=== PATIENT | male | born 2000 | race African-American/Black ===

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

== ENCOUNTER 2019-03-13 21:11 | Emergency (ER) | payer BC, OTHER ==
[2019-03-13 21:32] VITALS: RESP 18; TEMP 98.6
--- NOTE | 2019-03-13 22:03 | XR ---
EXAMINATION TYPE: XR foot complete RT DATE OF EXAM: 03/13/2019 COMPARISON: NONE HISTORY: Pain TECHNIQUE: 3 views FINDINGS: There is nondisplaced fracture of the mid shaft of the proximal phalanx little toe right fo ot. There is no dislocation. Metatarsals are intact. IMPRESSION: Nondisplaced little toe fracture.
--- NOTE | 2019-03-13 22:23 | ED ---
Lower Extremity Injury HPI - General Chief Complaint: Extremity Injury, Lower Stated Complaint: Toe Injury Time Seen by Provider: 03/13/19 21:38 Source: patient Mode of arrival: wheelchair Limitations: no limitations - History of Present Illness Initial Comments: 18-year-old male patient presents to the emergency department today for evaluation of right foot injury. Patient states his playing basketball and another player stepped on his foot. Patient states he is having pain over the fifth metatarsal region. States he is having a numb sensation to the right fifth toe. He feels he may have broken his foot. He denies falling, hitting his head, losing consciousness. Denies any other injuries. Patient denies any headache, neck pain, back pain, chest pain, shortness of breath, dizziness, weakness, abdominal pain, nausea, vomiting, or difficulties with bowel movements or urination. - Related Data Home Medications Medication Instructions Recorded Confirmed No Known Home Medications 03/13/19 03/13/19 Allergies Allergy/AdvReac Type Severity Reaction Status Date / Time peanut Allergy Itching Verified 07/13/18 08:34 Review of Systems ROS Statement: Those systems with pertinent positive or pertinent negative responses have been documented in the HPI. ROS Other: All systems not noted in ROS Statement are negative. Past Medical History Past Medical History: No Reported History History of Any Multi-Drug Resistant Organisms: None Reported Past Surgical History: No Surgical Hx Reported Past Psychological History: No Psychological Hx Reported Smoking Status: Current some day smoker Past Alcohol Use History: Occasional Past Drug Use History: None Reported General Exam Limitations: no limitations General appearance: alert, in no apparent distress, other (This is a well- developed, well-nourished adult male patient in no acute distress. Vital signs upon presentation are temperature 98.6F, pulse 74, respirations 18, blood pressure 155/88, pulse ox 98% on room air.) Eye exam: Present: normal appearance, PERRL, EOMI. Absent: scleral icterus, conjunctival injection, periorbital swelling ENT exam: Present: normal exam, normal oropharynx, mucous membranes moist Respiratory exam: Present: normal lung sounds bilaterally. Absent: respiratory distress, wheezes, rales, rhonchi, stridor Cardiovascular Exam: Present: regular rate, normal rhythm, normal heart sounds. Absent: systolic murmur, diastolic murmur, rubs, gallop, clicks Extremities exam: Present: full ROM, tenderness (Over the right fifth metatarsal and right fifth), normal capillary refill, other (There is soft tissue swelling noted over the distal aspect of the right fifth metatarsal. Skin is otherwise warm and dry. Cap refills less than 3 seconds. Pedal and posttibial pulses are 2+ and equal bilaterally.). Absent: normal inspection, pedal edema, joint swelling, calf tenderness Neurological exam: Present: alert, oriented X3, CN II-XII intact Psychiatric exam: Present: normal affect, normal mood Skin exam: Present: warm, dry, intact, normal color. Absent: rash Course Vital Signs 03/13/19 03/13/19 21:28 23:02 Temperature 98.6 F Pulse Rate 74 62 Respiratory 18 18 Rate Blood Pressure 155/88 139/59 O2 Sat by Pulse 98 98 Oximetry Medical Decision Making - Medical Decision Making 18-year-old female patient presented to the emergency department today for evaluation of right foot pain after injury during basketball. Physical examination did reveal soft tissue swelling over the right distal metatarsal. Neurovascular status is intact. X-rays were obtained and showed right fifth toe fracture. I did bryan tape the fourth and fifth digits together and was given a postop shoe. He is educated regarding rest and ice and elevation. Instructed to follow-up with his primary care physician for recheck in 1-2 days. Return parameters were discussed in detail. He verbalizes understanding and agrees with this plan. - Radiology Data Radiology results: report reviewed, image reviewed Three-view x-ray of the right foot was obtained. Report was reviewed in its entirety. Impression by Dr. Hooker shows nondisplaced little toe fracture. Disposition Clinical Impression: Fracture of fifth toe, right, closed Disposition: HOME SELF-CARE Condition: Good Instructions (If sedation given, give patient instructions): Toe Fracture (ED) Additional Instructions: Rest, ice, elevate the right foot. Apply ice 20 minutes at a time at least 4 times daily. Take Tylenol and Motrin for pain control. Use bryan taping (tape fourth and fifth toe together for support) when not wearing the shoe. Follow up with your primary care physician for recheck in 1-2 days. Return to the emergency department for any new, worsening, ,or concerning symptoms. Is patient prescribed a controlled substance at d/c from ED?: No Referrals: None,Stated [Primary Care Provider] - 1-2 days Time of Disposition: 22:23
[2019-03-13] MEDS ORDERED: IBUPROFEN 600 MG STARTER PACK 4 TAB BTL PO STA (22:30)
[2019-03-13 23:04] VITALS: BP 139/59; PULSE 62
== END 2019-03-13 23:12 | disposition home or self-care (01) ==
LOC: EC 21:11
DX: S92.504A Nondisplaced unspecified fracture of right lesser toe(s), initial encounter for closed fracture (principal); F17.200 Nicotine dependence, unspecified, uncomplicated; Z91.010 Allergy to peanuts; W50.0XXA Accidental hit or strike by another person, initial encounter; Y93.67 Activity, basketball; Y92.89 Other specified places as the place of occurrence of the external cause
CPT/HCPCS: 99283

== ENCOUNTER 2019-04-19 19:40 | Emergency (ER) | payer BC, OTHER ==
[2019-04-19 20:20] VITALS: BP 119/76; PULSE 78; RESP 18; TEMP 98.7
[2019-04-19] MEDS ORDERED: HYDROcodone/APAP 5-325MG 1 EACH TAB PO STA (20:59)
--- NOTE | 2019-04-19 21:20 | XR ---
EXAMINATION TYPE: XR tibia fibula RT DATE OF EXAM: 04/19/2019 COMPARISON: NONE HISTORY: Pain TECHNIQUE: 3 views FINDINGS: Tibia and fibula appear intact. I see no fracture nor dislocation. Ankle joint appears sherry omic. IMPRESSION: Negative right tibia and fibula exam.
--- NOTE | 2019-04-19 21:21 | XR ---
EXAMINATION TYPE: XR knee complete RT DATE OF EXAM: 04/19/2019 COMPARISON: NONE HISTORY: Knee pain TECHNIQUE: 3 views FINDINGS: I see no fracture nor dislocation. Joint spaces are normal. There is no sign of knee joint effusion. IMPRESSION: Negative right knee exam.
--- NOTE | 2019-04-19 22:06 | ED ---
General Adult HPI - General Chief complaint: Extremity Injury, Lower Stated complaint: R Leg Injury Time Seen by Provider: 04/19/19 20:22 Source: patient, RN notes reviewed, old records reviewed Mode of arrival: wheelchair Limitations: no limitations - History of Present Illness Initial comments: 18-year-old male patient presents ED chief complaint of right knee injury. Patient reports that he was playing football, was running, he got hit on the lateral aspect of his right knee. Patient was discharged became stuck. Patient for safety felt his knee shift inward. Patient denies any secondary trauma, denies any trauma to head or neck. Denies any other complaints. Patient is not ambulatory since injury. Systemic: Pt denies fatigue, fever/chills, rash. Pt denies weakness, night sweats, weight loss. Neuro: Pt denies headache, visual disturbances, syncope or pre-syncope. HEENT: Pt denies ocular discharge or irritation, otalgia, rhinorrhea, pha ryngitis or notable lymphadenopathy. Cardiopulmonary: Pt denies chest pain, SOB, heart palpitations, dyspnea on exertion. Abdominal/GI: Pt denies abdominal pain, n/v/d. : Pt denies dysuria, burning w/ urination, frequency/urgency. Denies new onset urinary or bowel incontinence. Neuro: Pt denies new onset weakness, paresthesias. - Related Data Previous Rx's Medication Instructions Recorded Hydrocodone/Acetaminophen [Jackson 1 each PO Q6HR PRN 3 Days #12 tab 04/19/19 5-325] Allergies Allergy/AdvReac Type Severity Reaction Status Date / Time peanut Allergy Itching Verified 04/19/19 20:19 Review of Systems ROS Statement: Those systems with pertinent positive or pertinent negative responses have been documented in the HPI. ROS Other: All systems not noted in ROS Statement are negative. Past Medical History Past Medical History: No Reported History History of Any Multi-Drug Resistant Organisms: None Reported Past Surgical History: No Surgical Hx Reported Past Psychological History: No Psychological Hx Reported Smoking Status: Current every day smoker Past Alcohol Use History: None Reported Past Drug Use History: None Reported General Exam - General Exam Comments Initial Comments: Constitutional: NAD, AOX3, Pt has pleasant affect. HEENT: NC/AT, trachea midline, neck supple, no lymphadenopathy. Posterior pharynx non erythematous, without exudates. External ears appear normal, without discharge. Mucous membranes moist. Eyes PERRLA, EOM intact. There is no scleral icterus. No pallor noted. Cardiopulmonary: RRR, no murmurs, rubs or gallops, no JVD noted. Lungs CTAB in anterior and posterior [place]. No peripheral edema. Abdominal exam: Abdomen soft and non-distended. Abdomen non-tender to palpation in all 4 quadrants. Bowel sounds active in LLQ. No hepatosplenomegaly. No ecchymosis Neuro: CN II-XII grossly intact. No nuchal rigidity. No raccon eyes, no herrera sign, no hemotympanum. No cervical spinal tenderness. MSK: Lateral aspect of right knee mildly tender to palpation. Range of motion limited secondary to pain. Distal pulses intact and equal. Foot warm, capillary refill <2 seconds. No posterior calf tenderness bilaterally, homans sign negative bilaterally. Posterior tibialis and radial pulse +2 bilaterally. Sensation intact in upper and lower extremities. Full active ROM in upper and lower extremities, 5/5 stregnth. Limitations: no limitations Course Vital Signs 04/19/19 20:15 Temperature 98.7 F Pulse Rate 78 Respiratory 18 Rate Blood Pressure 119/76 O2 Sat by Pulse 99 Oximetry Medical Decision Making - Medical Decision Making 18-year-old male patient presents ED chief complaint of right knee injury. Patient reports that he was playing football, was running, he got hit on the lateral aspect of his right knee. Patient was discharged became stuck. Patient for safety felt his knee shift inward. Patient denies any secondary trauma, denies any trauma to head or neck. Denies any other complaints. Patient is not ambulatory since injury. Pt VSS, afebrile. Physical exam displayed: Lateral aspect of right knee mildly tender to palpation. Range of motion limited secondary to pain. Distal pulses intact and equal. Foot warm, capillary refill <2 seconds. Plain film of tibia-fibula, knee did not display acute process. Ankle brachial index was 1.15 on right, 1.11 on left. Patient placed in knee immobilizer. Patient discharged close orthopedic follow-up. Precautions discussed. Patient was crutches, bear weight. Case discussed with Dr. Carver. Disposition Clinical Impression: Knee sprain Disposition: HOME SELF-CARE Condition: Stable Instructions (If sedation given, give patient instructions): Knee Sprain (ED) Additional Instructions: Patient to adhere to previously discussed treatment plan and will take medication(s) as directed. Patient to follow up with PCP in 1-2 days. Patient to return to ED if symptoms do not improve. Continue to use knee immobilizer, use crutches, follow up with orthopedic consult tomorrow. Return to ER if condition worsens. Prescriptions: Hydrocodone/Acetaminophen [Jackson 5-325] 1 each PO Q6HR PRN 3 Days #12 tab PRN Reason: Pain Is patient prescribed a controlled substance at d/c from ED?: Yes When asked, does pt state using other controlled substances?: No If prescribed controlled substance>3 days was MAPS reviewed?: Prescribed <3 Days If opioid is for acute pain is fill amount 7 days or less?: Yes If Rx opioid, was Start Talking consent form obtained?: Yes Referrals: None,Stated [Primary Care Provider] - 1-2 days Ji Almazan, DO [Doctor of Osteopathic Medicine] - 1-2 days
== END 2019-04-19 22:20 | disposition home or self-care (01) ==
LOC: EC 19:40
DX: S83.91XA Sprain of unspecified site of right knee, initial encounter (principal); F17.200 Nicotine dependence, unspecified, uncomplicated; W21.01XA Struck by football, initial encounter; Y93.61 Activity, american tackle football; Y92.39 Other specified sports and athletic area as the place of occurrence of the external cause
CPT/HCPCS: 93922; 99284

== ENCOUNTER 2019-04-22 17:42 | Emergency (ER) | payer BC, OTHER ==
[2019-04-22 18:34] VITALS: BP 123/61; PULSE 73; RESP 18; TEMP 97.8
[2019-04-22] MEDS ORDERED: KETOROLAC 30 MG/ML 1 ML VIAL IM STA (18:37)
--- NOTE | 2019-04-22 18:48 | ED ---
Lower Extremity Injury HPI - General Chief Complaint: Extremity Injury, Lower Stated Complaint: knee pain Source: patient Mode of arrival: wheelchair Limitations: no limitations - History of Present Illness Initial Comments: 18yo male presented for right knee pain x 3 days after injury.. States he hurt in football on the . Patient states he did evaluate the emergency depar tment this time. He was told he might have a lateral cruciate ligament injury and was given a knee immobilizer and told to follow-up with orthopedic surgery. Patient states he did not follow-up or make an appointment yet. Patient states the pain is still in the lateral aspect of his knee denies any posterior knee pain to his calf pain denies any new swelling. She denies any new injury. Patient states he is out of the Verdi use prescribed. Remaining review systems negative. Upon arrival patient appears well no signs of acute distress. - Related Data Previous Rx's Medication Instructions Recorded Hydrocodone/Acetaminophen [Verdi 1 each PO Q6HR PRN 3 Days #12 tab 04/19/19 5-325] Allergies Allergy/AdvReac Type Severity Reaction Status Date / Time peanut Allergy Itching Verified 04/22/19 18:33 Review of Systems ROS Statement: Those systems with pertinent positive or pertinent negative responses have been documented in the HPI. ROS Other: All systems not noted in ROS Statement are negative. Past Medical History Past Medical History: No Reported History History of Any Multi-Drug Resistant Organisms: None Reported Past Surgical History: No Surgical Hx Reported Past Psychological History: No Psychological Hx Reported Smoking Status: Former smoker Past Alcohol Use History: None Reported Past Drug Use History: None Reported General Exam - General Exam Comments Initial Comments: General: The patient is awake and alert, in no distress, and does not appear acutely ill. Eye: Pupils are equal, round and reactive to light, extra-ocular movements are intact. No nystagmus. There is normal conjunctiva bilaterally. No signs of icterus. Cardiovascular: There is a regular rate and rhythm. No murmur, rub or gallop is appreciated. Respiratory: Lungs are clear to auscultation, respirations are non-labored, breath sounds are equal. No wheezes, stridor, rales, or rhonchi. Musculoskeletal: Normal inspection of the knees bilaterally. No pain to palpation posterior calf. Negative Homans bilaterally. No redness. Patient is able to fully range the knees bilaterally completed to discomfort with range of motion at the right knee. Patient does have point localized tenderness over the medial aspect of the right knee. Strength 5/5. Sensory mechanism intact no noted specific laxity. Sensation intact and present proximal distal to injury site. DP pulses equal bilaterally 2+. Neurological: A&O x 3. CN II-XII intact grossly, There are no obvious motor or sensory deficits. Coordination appears grossly intact. Speech is normal. Skin: Skin is warm and dry and no rashes or lesions are noted. Psychiatric: Cooperative, appropriate mood & affect, normal judgment. Limitations: no limitations Course Vital Signs 04/22/19 18:30 Temperature 97.8 F Pulse Rate 73 Respiratory 18 Rate Blood Pressure 123/61 O2 Sat by Pulse 99 Oximetry Medical Decision Making - Medical Decision Making well appearing 18 yo male presenting for reevaluation of knee pain. Patient states it continues to hurt. Patient has not followed up with the physicians recommended. Patient states he is out of his pain medications. At this time I do not feel comfortable prescribing patient another outpatient prescription. Patient is given a starter pack for Tylenol No. 3 instruction to take ibuprofen and rest ice compress elevate and avoid contact sports. Recommended patient follow up this week with orthopedic surgery stressed importance for further evaluation. Patient has no signs of redness calf pain and swelling consistent with DVT. Remaining review of system negative. Patient appears well at this time will be discharged with appropriate follow-up. Patient was encouraged to use crutches for ambulation which he states he does have a prescription for Disposition Clinical Impression: Right knee injury, Right knee pain, Right knee sprain Disposition: HOME SELF-CARE Condition: Good Instructions (If sedation given, give patient instructions): Knee Sprain (ED) Additional Instructions: Please use medication as discussed. Please follow-up with orthopedic surgery this week. Please use knee immobilizer and crutches for ambulation, no sports please. Please return to emergency room if the symptoms increase or worsen or for any other concerns-calf pain swelling. Is patient prescribed a controlled substance at d/c from ED?: No Referrals: None,Stated [Primary Care Provider] - 1-2 days Jozef Eldridge MD [STAFF PHYSICIAN] - 1-2 days Time of Disposition: 19:14
[2019-04-22] MEDS ORDERED: ACET/COD 300 MG/30 MG STARTER PACK 6 TAB BTL PO STA (19:15)
== END 2019-04-22 19:36 | disposition home or self-care (01) ==
LOC: EC 17:42
DX: S83.91XA Sprain of unspecified site of right knee, initial encounter (principal); Z53.20 Procedure and treatment not carried out because of patient's decision for unspecified reasons; Z87.891 Personal history of nicotine dependence; Z91.010 Allergy to peanuts; X58.XXXA Exposure to other specified factors, initial encounter; Y93.61 Activity, american tackle football; Y92.321 Football field as the place of occurrence of the external cause
CPT/HCPCS: 99283

== ENCOUNTER 2019-07-22 02:14 | Emergency (ER) | payer BC, OTHER ==
[2019-07-22 02:25] VITALS: BP 143/78; PULSE 94; RESP 20; TEMP 98.1
[2019-07-22] MEDS ORDERED: IBUPROFEN 600 MG TAB PO STA (02:33)
--- NOTE | 2019-07-22 03:07 | XR ---
EXAMINATION TYPE: XR hand complete LT DATE OF EXAM: 07/22/2019 COMPARISON: NONE HISTORY: Pain TECHNIQUE: 3 views FINDINGS: Metacarpals are intact. I see no fracture nor dislocation. Joint spaces are normal. IMPRESSION: Negative left hand exam.
--- NOTE | 2019-07-22 03:10 | ED ---
Upper Extremity HPI - General Chief Complaint: Extremity Injury, Upper Stated Complaint: Rt and Lt hand injuries Time Seen by Provider: 07/22/19 02:25 Source: patient, family Mode of arrival: ambulatory Limitations: no limitations - History of Present Illness Initial Comments: 18-year-old male patient presents to the emergency department today for evalua tion of left hand pain. Patient states that he punched a brick wall earlier this morning. Patient states he has been having pain and swelling since. He denies any numbness or tingling to the hand. States he has had a previous similar injury to cause damage to his third MCP joint. Denies taking any medication for his symptoms. He denies any other injuries. - Related Data Home Medications Medication Instructions Recorded Confirmed No Known Home Medications 07/22/19 07/22/19 Allergies Allergy/AdvReac Type Severity Reaction Status Date / Time peanut Allergy Itching Verified 07/22/19 02:25 Review of Systems ROS Statement: Those systems with pertinent positive or pertinent negative responses have been documented in the HPI. ROS Other: All systems not noted in ROS Statement are negative. Past Medical History Past Medical History: No Reported History History of Any Multi-Drug Resistant Organisms: None Reported Past Surgical History: No Surgical Hx Reported Past Psychological History: No Psychological Hx Reported Smoking Status: Former smoker Past Alcohol Use History: None Reported Past Drug Use History: None Reported General Exam Limitations: no limitations General appearance: alert, in no apparent distress, other (This is a well- developed, well-nourished adult male patient in no acute distress. Vital signs upon presentation are temperature 98.1F, pulse 94, respirations 20, blood pressure 143/78, pulse ox 98% on room air.) Respiratory exam: Present: normal lung sounds bilaterally. Absent: respiratory distress, wheezes, rales, rhonchi, stridor Cardiovascular Exam: Present: regular rate, normal rhythm, normal heart sounds. Absent: systolic murmur, diastolic murmur, rubs, gallop, clicks Extremities exam: Present: full ROM, tenderness (Over the third MCP joint.), normal capillary refill, other (There is some soft tissue swelling over the dorsal aspect of the left hand. Skin is warm and dry. Cap refills less than 3 seconds. Radial pulses 2+ and equal bilaterally.). Absent: normal inspection, pedal edema, joint swelling, calf tenderness Neurological exam: Present: alert, oriented X3, CN II-XII intact Psychiatric exam: Present: normal affect, normal mood Skin exam: Present: warm, dry, intact, normal color. Absent: rash Course Vital Signs 07/22/19 02:18 Temperature 98.1 F Pulse Rate 94 Respiratory 20 Rate Blood Pressure 143/78 O2 Sat by Pulse 98 Oximetry Medical Decision Making - Medical Decision Making 18-year-old male patient presented to the emergency department today for evaluation of left hand injury. Physical examination did reveal soft tissue swelling and tenderness over the left third MCP joint. X-ray was obtained and was negative. He was placed in an Shawn wrap. Instructed regarding rest, ice, elevation. He is instructed to follow up with his primary care physician for recheck in 1-2 days. He is instructed to have repeat x-rays performed in 7-10 days this pain symptoms persist. Return parameters were discussed in detail. He verbalizes understanding and agrees with this plan. - Radiology Data Radiology results: report reviewed, image reviewed 3 views of the left hand are obtained. Report was reviewed in its entirety. Impression by Dr. Hooker shows negative left hand exam. Disposition Clinical Impression: Contusion of left hand Disposition: HOME SELF-CARE Condition: Good Instructions (If sedation given, give patient instructions): Contusion in Adults (ED) Additional Instructions: Rest, ice, elevate the extremity. Take tylenol or motrin for pain control. Follow up for repeat xrays in 7-10 days if pain symptoms persist. Return to the emergency department for any new, worsening, or concerning symptoms. Is patient prescribed a controlled substance at d/c from ED?: No Referrals: Nonstaff,Physician [Primary Care Provider] - 1-2 days Time of Disposition: 03:09
== END 2019-07-22 03:27 | disposition home or self-care (01) ==
LOC: EC 02:14
DX: S60.222A Contusion of left hand, initial encounter (principal); S69.91XA Unspecified injury of right wrist, hand and finger(s), initial encounter; Z87.891 Personal history of nicotine dependence; Z91.010 Allergy to peanuts; W22.01XA Walked into wall, initial encounter; Y92.009 Unspecified place in unspecified non-institutional (private) residence as the place of occurrence of the external cause
CPT/HCPCS: 99283

== ENCOUNTER 2020-02-15 15:12 | Emergency (ER) | payer BC, OTHER ==
[2020-02-15 15:18] VITALS: TEMP 99
--- NOTE | 2020-02-15 15:43 | ED ---
General Adult HPI - General Chief complaint: Extremity Injury, Lower Stated complaint: Hurt RT leg Time Seen by Provider: 02/15/20 15:24 Source: patient Mode of arrival: ambulatory Limitations: no limitations - History of Present Illness Initial comments: Dictation was produced using [employer] dictation software. please excuse any grammatical, word or spelling errors. This patient was cared for during a federal and state declared state of emergency secondary to Covid 19 Chief Complaint: 19-year-old male presents with right hand pain and right knee pain. History of Present Illness: Patient is a 19-year-old male. Earlier today patient states he hurt his knee and his hand. Patient state he hit his hand. Denies punching or having crush injury to the hand. Patient does not go into detail. States the hand pain is over his third MCP. Patient also presents with right knee pain. Patient says that he has history of meniscal tear in that knee. Patient was in the back of a car trying to turn when he felt pain along the lateral side of his right lower extremity. Patient states the pain is to his right lateral knee brace onto his right lateral malleolus. Patient able to ambulate. The ROS documented in this emergency department record has been reviewed and confirmed by me. Those systems with pertinent positive or negative responses have been documented in the HPI. All other systems are other negative and/or noncontributory. PHYSICAL EXAM: General Impression: Alert and oriented x3, not in acute distress HEENT: Normocephalic atraumatic, extra-ocular movements intact, pupils equal and reactive to light bilaterally, mucous membranes moist. Cardiovascular: Heart regular rate and rhythm Chest: Able to complete full sentences, no retractions, no tachypnea Abdomen: abdomen soft, non-tender, non-distended, no organomegaly Musculoskeletal: Pulses present and equal in all extremities, no peripheral edema Right hand: Swelling over the third MCP with tenderness to palpation Right knee: No gross deformities, minimal tenderness to palpation over the right proximal fibula and knee Motor: no focal deficits noted Neurological: CN II-XII grossly intact, no focal motor or sensory deficits noted Skin: Intact with no visualized rashes Psych: Normal affect and mood ED course: 19 y Old male presents with right knee pain and right hand pain as upon arrival are within acceptable limits. X-ray of the knee and hand and ankle were obtained shows no osseous abnormalities. Clinical presentation likely secondary to right hand contusion, and right knee sprain. Patient told to follow-up with his primary care physician upon discharge. - Related Data Home Medications Medication Instructions Recorded Confirmed No Known Home Medications 07/22/19 07/22/19 Allergies Allergy/AdvReac Type Severity Reaction Status Date / Time peanut Allergy Itching Verified 02/15/20 15:18 Review of Systems ROS Statement: Those systems with pertinent positive or pertinent negative responses have been documented in the HPI. ROS Other: All systems not noted in ROS Statement are negative. Past Medical History Past Medical History: No Reported History History of Any Multi-Drug Resistant Organisms: None Reported Past Surgical History: No Surgical Hx Reported Past Psychological History: No Psychological Hx Reported Smoking Status: Never smoker Past Alcohol Use History: Occasional Past Drug Use History: None Reported General Exam Limitations: no limitations Course Vital Signs 02/15/20 15:15 Temperature 99.0 F Pulse Rate 77 Respiratory 18 Rate Blood Pressure 120/58 O2 Sat by Pulse 99 Oximetry Disposition Clinical Impression: Hand contusion, Knee sprain Disposition: HOME SELF-CARE Condition: Good Instructions (If sedation given, give patient instructions): Knee Sprain (ED), Arthralgia (ED) Is patient prescribed a controlled substance at d/c from ED?: No Referrals: None,Stated [Primary Care Provider] - 1-2 days Time of Disposition: 16:46
--- NOTE | 2020-02-15 16:25 | XR ---
EXAMXR hand complete 3 views RT, XR knee 4V RT, XR ankle complete 3 views RTete 3 views RT 02/15/2020XAM: 02/15/2020Hand radiographs 09/13/2012[facility] [id number] male with painmale with prashant Right hand: No acute or healing fracture is identified. Joint spaces throughout are maintained. No acute fracture , subluxation, or dislocation. Right knee: Right knee: No acute fracture, subluxation, dislocation. No significant knee joint effusion seen. Extensor mechan ism appears intact. Patella remains a peripherally situated along the trochlear groove. Right ankle: Ankle mortise is congruent with preservation of the distal tibiofibular overlap. Talar dome is intact . No acute fracture, subluxation, or dislocation. Small delineation to the Achilles tendon. Subtalar joint is aligned. MPRESSION: Right hand, knee, and ankle without acute osseous abnormality seen.
[2020-02-15 17:11] VITALS: BP 139/79; PULSE 70; RESP 16
== END 2020-02-15 17:09 | disposition home or self-care (01) ==
LOC: EC 15:12
DX: S60.221A Contusion of right hand, initial encounter (principal); S83.91XA Sprain of unspecified site of right knee, initial encounter; Z91.010 Allergy to peanuts; W18.09XA Striking against other object with subsequent fall, initial encounter
CPT/HCPCS: 99283

== ENCOUNTER 2020-03-14 21:40 | Emergency (ER) | payer BC, OTHER ==
[2020-03-14 21:56] VITALS: BP 132/61; PULSE 101; RESP 18; TEMP 98
--- NOTE | 2020-03-14 22:21 | ED ---
General Adult HPI - General Chief complaint: Dizziness Stated complaint: Eye Injury Time Seen by Provider: 03/14/20 22:05 Source: patient Mode of arrival: ambulatory Limitations: no limitations - History of Present Illness Initial comments: 19-year-old male patient presents to the emergency department today for evaluation of left eyebrow laceration. Patient states that he and his cousin were wrestling when they bumped heads. Patient states that he sustained a laceration was unable to stop the bleeding site presented here for further evaluation. Patient denies any loss of consciousness with this injury. Denies any current headache, blurred vision, or double vision. Denies nausea or vomiting. Denies any neck or back pain. Denies any other injuries. States his last tetanus vaccine was in 2018. Patient denies any headache, chest pain, shortness of breath, dizziness, weakness, abdominal pain, nausea, vomiting, or difficulties with bowel movements or urination. - Related Data Home Medications Medication Instructions Recorded Confirmed No Known Home Medications 07/22/19 07/22/19 Allergies Allergy/AdvReac Type Severity Reaction Status Date / Time peanut Allergy Itching Verified 03/14/20 21:55 Review of Systems ROS Statement: Those systems with pertinent positive or pertinent negative responses have been documented in the HPI. ROS Other: All systems not noted in ROS Statement are negative. Past Medical History Past Medical History: No Reported History History of Any Multi-Drug Resistant Organisms: None Reported Past Surgical History: No Surgical Hx Reported Past Psychological History: No Psychological Hx Reported Smoking Status: Never smoker Past Alcohol Use History: Occasional Past Drug Use History: Marijuana General Exam Limitations: no limitations General appearance: alert, in no apparent distress, other (This is a well- developed, well-nourished adult male patient in no acute distress. Vital signs upon presentation are temperature 98.0F, pulse 101, respirations 18, blood pressure 132/61, pulse ox 96% on room air.) Eye exam: Present: normal appearance, PERRL, EOMI, other (There is 2 cm lacerati on noted to the left eyebrow. Mild bleeding noted. There is no bony step-off or deformity noted to palpation of the orbit. Globes intact with no evidence for injury or rupture.). Absent: scleral icterus, conjunctival injection, periorbital swelling (Mild left superior orbital swelling) ENT exam: Present: normal exam, normal oropharynx, mucous membranes moist Neck exam: Present: normal inspection, full ROM, other (Nontender, no step-off, no deformity to firm midline palpation of the posterior cervical spine. Full range of motion without pain or limitation.). Absent: tenderness, meningismus, lymphadenopathy Respiratory exam: Present: normal lung sounds bilaterally. Absent: respiratory distress, wheezes, rales, rhonchi, stridor Cardiovascular Exam: Present: regular rate, normal rhythm, normal heart sounds. Absent: systolic murmur, diastolic murmur, rubs, gallop, clicks Neurological exam: Present: alert, oriented X3, CN II-XII intact Expanded Speech: Present: fluid speech Cranial nerves: EOM's Intact: Normal, Nystagmus: Normal Motor strength exam: RUE: 5, LUE: 5, RLE: 5, LLE: 5 Eye Response: (4) open spontaneously Motor Response: (6) obeys commands Verbal Response: (5) oriented [place] Total: 15 Psychiatric exam: Present: normal affect, normal mood Skin exam: Present: warm, dry, intact, normal color. Absent: rash Course Vital Signs 03/14/20 21:49 Temperature 98 F Pulse Rate 101 H Respiratory 18 Rate Blood Pressure 132/61 O2 Sat by Pulse 96 Oximetry Procedures - Laceration Laceration #1 Consent Obtained: verbal consent Indication: laceration Site: other (Left eyebrow) Size (cm): 2 Description: linear Depth: simple, single layer Pre-repair: irrigated extensively Type of Sutures: other (Micro-mend ) Number of Sutures: 2 Patient Tolerated Procedure: well, no complications Medical Decision Making - Medical Decision Making 19-year-old male patient presents to the emergency department today for evaluation of laceration to the left eyebrow. Physical examination did reveal 2 cm laceration to the left eyebrow with mild surrounding swelling. There is mild bleeding at site. He is neurologically intact with no focal deficits. He denies any loss of consciousness, states he didn't understand the question when he was in triage. We did repair the laceration using the micro-mend sutures. Patient tolerated this well. He'll be discharged pop his primary care physician for recheck in 1-2 days. Return parameters were discussed in detail. He verbalizes understanding and agrees with this plan. Disposition Clinical Impression: Laceration of left eyebrow, Head injury Disposition: HOME SELF-CARE Condition: Good Instructions (If sedation given, give patient instructions): Laceration (ED), Head Injury (ED) Additional Instructions: Monitor for signs and symptoms of infection including but not limited to redness, swelling, drainage of pus, fever, or chills. Follow-up with your primary care physician for recheck in 1-2 days. Remove the stitches in 4 days. Return to emergency department for any new, worsening, or concerning symptoms. Is patient prescribed a controlled substance at d/c from ED?: No Referrals: None,Stated [Primary Care Provider] - 1-2 days Time of Disposition: 22:21
== END 2020-03-14 22:25 | disposition home or self-care (01) ==
LOC: EC 21:40
DX: S01.112A Laceration without foreign body of left eyelid and periocular area, initial encounter (principal); Z91.010 Allergy to peanuts; W50.0XXA Accidental hit or strike by another person, initial encounter; Y93.72 Activity, wrestling
CPT/HCPCS: 12011; 99283

== ENCOUNTER 2020-03-23 20:00 | Emergency (ER) | payer BC, OTHER ==
[2020-03-23 20:07] VITALS: RESP 18
--- NOTE | 2020-03-23 20:18 | ED ---
General Adult HPI - General Chief complaint: Fall Stated complaint: Fall Time Seen by Provider: 03/23/20 20:01 Source: patient, EMS Mode of arrival: EMS Limitations: no limitations - History of Present Illness Initial comments: Dictation was produced using [employer] dictation software. please excuse any grammatical, word or spelling errors. This patient was cared for during a federal and state declared state of emergency secondary to Covid 19 Chief Complaint: 19-year-old male presents after fall and EtOH intoxication. History of Present Illness: 19-year-old male presents today with no significant past medical history. Patient had 4 beers today. Patient has never consumed alcohol before. He reports this is his first time. 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 He was excited when they arranged a match for him. Patient was shadow boxing when he hit his head on the car. He then felt and hit his head on the ground. Patient complains of mild left-sided headache. The ROS documented in this emergency department record has been reviewed and confirmed by me. Those systems with pertinent positive or negative responses have been documented in the HPI. All other systems are other negative and/or noncontributory. PHYSICAL EXAM: General Impression: Alert and oriented x3, not in acute distress, smells of EtOH HEENT: Normocephalic atraumatic, extra-ocular movements intact, pupils equal and reactive to light bilaterally, mucous membranes moist. Cardiovascular: Heart regular rate and rhythm Chest: Able to complete full sentences, no retractions, no tachypnea Abdomen: abdomen soft, non-tender, non-distended, no organomegaly Musculoskeletal: Pulses present and equal in all extremities, no peripheral edema Motor: no focal deficits noted Neurological: CN II-XII grossly intact, no focal motor or sensory deficits noted Skin: Intact with no visualized rashes Psych: Normal affect and mood ED course: 19-year-old male presents after fall. Patient had alcohol today. Vital signs upon arrival are within acceptable limits Labs are unremarkable. Serum alcohol is 116. Computed tomography scan is otherwise normal without any acute findings. There is incidental finding of sinusitis and small periapical abscess. Patient given antibiotics. We will arrange for family come pick patient up. Is tolerating oral bedside. Patient prescription for antibiotics for sinus and abscesses. Patient told to follow-up with a dentist. - Related Data Previous Rx's Medication Instructions Recorded Amoxic-Pot Clav 875-125Mg 1 tab PO BID 10 Days #20 tab 03/23/20 [Augmentin 875-125] Allergies Allergy/AdvReac Type Severity Reaction Status Date / Time peanut Allergy Itching Verified 03/23/20 21:28 Review of Systems ROS Statement: Those systems with pertinent positive or pertinent negative responses have been documented in the HPI. ROS Other: All systems not noted in ROS Statement are negative. Past Medical History Past Medical History: No Reported History History of Any Multi-Drug Resistant Organisms: None Reported Past Surgical History: No Surgical Hx Reported Past Psychological History: No Psychological Hx Reported Smoking Status: Former smoker Past Alcohol Use History: Occasional Past Drug Use History: Marijuana General Exam Limitations: no limitations Course Vital Signs 03/23/20 03/23/20 03/23/20 20:00 20:06 21:32 Temperature 98.4 F Pulse Rate 96 96 77 Respiratory 18 18 Rate Blood Pressure 147/69 147/69 124/57 O2 Sat by Pulse 98 98 96 Oximetry Medical Decision Making - Lab Data Result diagrams: 03/23/20 20:13 03/23/20 20:13 Lab Results 03/23/20 03/23/20 Range/Units 20:13 20:13 WBC 6.4 (4.0-11.0) k/uL RBC 4.92 (4.30-5.90) m/uL Hgb 14.3 (13.0-17.5) gm/dL Hct 41.7 (39.0-53.0) % MCV 84.9 (80.0-100.0) fL MCH 29.0 (25.0-35.0) pg MCHC 34.2 (31.0-37.0) g/dL RDW 13.7 (11.5-15.5) % Plt Count 185 (150-450) k/uL Neutrophils % 57 % Lymphocytes % 27 % Monocytes % 7 % Eosinophils % 5 % Basophils % 1 % Neutrophils # 3.6 (1.3-7.7) k/uL Lymphocytes # 1.7 (1.0-4.8) k/uL Monocytes # 0.4 (0-1.0) k/uL Eosinophils # 0.3 (0-0.7) k/uL Basophils # 0.1 (0-0.2) k/uL Sodium 140 (137-145) mmol/L Potassium 3.8 (3.5-5.1) mmol/L Chloride 107 (98-107) mmol/L Carbon Dioxide 23 (22-30) mmol/L Anion Gap 10 mmol/L BUN 15 (9-20) mg/dL Creatinine 0.92 (0.66-1.25) mg/dL Est GFR (CKD-EPI)AfAm >90 (>60 ml/min/1.73 sqM) Est GFR (CKD-EPI)NonAf >90 (>60 ml/min/1.73 sqM) Glucose 93 (74-99) mg/dL Calcium 9.3 (8.4-10.2) mg/dL Serum Alcohol 116 mg/dL Disposition Clinical Impression: Alcohol intoxication, Head contusion, Dental abscess Disposition: HOME SELF-CARE Condition: Good Instructions (If sedation given, give patient instructions): Fall Prevention (ED), Dental Abscess (ED) Additional Instructions: Please follow up with Dentist. You're found to have periapical abscess of one of your teeth. Prescription was sent to the pharmacy for pickup. Prescriptions: Amoxic-Pot Clav 875-125Mg [Augmentin 875-125] 1 tab PO BID 10 Days #20 tab Is patient prescribed a controlled substance at d/c from ED?: No Referrals: None,Stated [Primary Care Provider] - 1-2 days Time of Disposition: 22:10
[2020-03-23 20:38] LABS: Basophils # (A) 0.1 k/uL (0-0.2); Basophils % (A) 1 %; Eosinophils # (A) 0.3 k/uL (0-0.7); Eosinophils % (A) 5 %; HCT 41.7 % (39.0-53.0); HGB 14.3 gm/dL (13.0-17.5); Lymphocytes # (A) 1.7 k/uL (1.0-4.8); Lymphocytes % (A) 27 %; MCHC 34.2 g/dL (31.0-37.0); MCV 84.9 fL (80.0-100.0); Mean Platelet Volume 7.1; Monocytes # (A) 0.4 k/uL (0-1.0); Monocytes % (A) 7 %; Neutrophils # (A) 3.6 k/uL (1.3-7.7); Neutrophils % (A) 57 %; Platelet Count 185 k/uL (150-450); RBC 4.92 m/uL (4.30-5.90); RDW 13.7 % (11.5-15.5); WBC 6.4 k/uL (4.0-11.0)
[2020-03-23 20:48] LABS: African American GFR (CKD) >90 (>60 ml/min/1.73 sqM); Blood Urea Nitrogen 15 mg/dL (9-20); Calcium 9.3 mg/dL (8.4-10.2); Carbon Dioxide 23 mmol/L (22-30); Chloride 107 mmol/L (98-107); Glucose 93 mg/dL (74-99); Non-African American GFR(CKD) >90 (>60 ml/min/1.73 sqM); Potassium 3.8 mmol/L (3.5-5.1)
[2020-03-23 20:52] LABS: Alcohol 116 mg/dL
[2020-03-23] MEDS ORDERED: ACETAMINOPHEN TAB 500 MG TAB PO STA (21:42)
[2020-03-23 21:44] LABS: Anion Gap 10 mmol/L; Sodium 140 mmol/L (137-145)
--- NOTE | 2020-03-23 21:52 | CT ---
EXAMINATION TYPE: CT brain izabelaine wo con DATE OF EXAM: 03/23/2020 COMPARISON: None HISTORY: fall CT DLP: 1588.2 mGycm Automated exposure control for dose reduction was used. TECHNIQUE: CT scan of the head and cervical spine are performed without contrast. FINDINGS: There is no acute intracranial hemorrhage, mass effect, or midline shift identified. The ventricles and sulci are within normal limits in size. No extra-axial fluid collection. The globes a re grossly symmetric. There is right maxillary second molar periapical abscess. There is opacificatio n of the right maxillary sinus. No depressed calvarial fracture. Cervical spine is visualized in its entirety from C1 through upper thoracic levels and demonstrates s atisfactory alignment without evidence of acute fracture or dislocation. Prevertebral soft tissue ap pears within normal limits. The C1-C2 articulation is unremarkable. IMPRESSION: 1. There is no acute fracture or dislocation evident in the cervical spine. 2. No acute intracranial hemorrhage, mass effect, or midline shift is seen. 3. Right maxillary second molar small periapical abscess with osseous erosion of the medial maxilla. 4. Opacification of the right maxillary sinus.
[2020-03-23 22:51] VITALS: BP 128/92; PULSE 75; TEMP 98.3
== END 2020-03-23 22:51 | disposition home or self-care (01) ==
LOC: EC 20:00
DX: S00.93XA Contusion of unspecified part of head, initial encounter (principal); F10.129 Alcohol abuse with intoxication, unspecified; K04.7 Periapical abscess without sinus; Y90.9 Presence of alcohol in blood, level not specified; Z91.010 Allergy to peanuts; Z87.891 Personal history of nicotine dependence; W18.09XA Striking against other object with subsequent fall, initial encounter
CPT/HCPCS: 36415; 80048; 85025; 72125; 70450; 99284; G0480; 80320

== ENCOUNTER 2021-07-11 20:18 | Emergency (ER) | payer BC, OTHER ==
[2021-07-11 20:32] VITALS: BP 126/71; PULSE 71; RESP 20; TEMP 98.4
--- NOTE | 2021-07-11 20:57 | XR ---
EXAMINATION TYPE: XR knee complete LT DATE OF EXAM: 07/11/2021 COMPARISON: NONE HISTORY: Knee pain TECHNIQUE: 3 views FINDINGS: I see no fracture nor dislocation. Joint spaces are normal. There is small knee joint effus ion. IMPRESSION: No fracture. Small knee joint effusion.
--- NOTE | 2021-07-11 21:09 | ED ---
Lower Extremity Injury HPI - General Chief Complaint: Extremity Injury, Lower Stated Complaint: leg pain Time Seen by Provider: 07/11/21 21:07 Source: patient Mode of arrival: ambulatory Limitations: no limitations - History of Present Illness Initial Comments: 's patient is 20-year-old man who presents to be evaluated for left knee pain. The patient states that he had been practicing his boxing when he twisted his left knee. He is not recalling the exact movement. Patient states that over the next couple of hours she developed increasing pain and swelling. He is able to bear weight and walk. MD Complaint: knee injury -: hour(s) Injury: Knee: Left Type of Injury: other Place: other Improves With: nothing Worsens With: weight bearing Context: other Associated Symptoms: swelling, ambulatory - Related Data Previous Rx's Medication Instructions Recorded Amoxic-Pot Clav 875-125Mg 1 tab PO BID 10 Days #20 tab 03/23/20 [Augmentin 875-125] Ibuprofen 800 mg PO TID #20 tablet 07/11/21 Allergies Allergy/AdvReac Type Severity Reaction Status Date / Time peanut Allergy Itching Verified 07/11/21 20:31 Review of Systems ROS Statement: Those systems with pertinent positive or pertinent negative responses have been documented in the HPI. ROS Other: All systems not noted in ROS Statement are negative. Constitutional: Denies: weakness Musculoskeletal: Reports: as per HPI, joint swelling, arthralgia Neurological: Denies: weakness, numbness, paresthesias Past Medical History Past Medical History: No Reported History History of Any Multi-Drug Resistant Organisms: None Reported Past Surgical History: No Surgical Hx Reported Past Psychological History: No Psychological Hx Reported Smoking Status: Current some day smoker Past Alcohol Use History: Occasional Past Drug Use History: Marijuana General Exam Limitations: no limitations General appearance: alert, in no apparent distress Left Upper Leg exam: Present: normal inspection, full ROM. Absent: tenderness, swelling Knee exam: Present: normal inspection, full ROM, tenderness, effusion (Case fluid), full knee extension. Absent: abrasion, laceration, ecchymosis, deformity, crepitus, dislocation, erythema, posterior draw sign, pain/laxity with valgus, pain/laxity with varus Lower Leg exam: Present: normal inspection, full ROM. Absent: tenderness, swelling Ankle exam: Present: normal inspection, full ROM. Absent: tenderness, swelling Skin exam: Present: warm, dry, intact, normal color. Absent: rash Course Vital Signs 07/11/21 20:31 Temperature 98.4 F Pulse Rate 71 Respiratory 20 Rate Blood Pressure 126/71 O2 Sat by Pulse 98 Oximetry Disposition Clinical Impression: Left knee sprain Disposition: HOME SELF-CARE Instructions (If sedation given, give patient instructions): Knee Sprain (ED) Prescriptions: Ibuprofen 800 mg PO TID #20 tablet Is patient prescribed a controlled substance at d/c from ED?: No Referrals: None,Stated [Primary Care Provider] - 1-2 days Tony Malone MD [STAFF PHYSICIAN] - 1-2 days
== END 2021-07-11 21:30 | disposition home or self-care (01) ==
LOC: EC 20:18
DX: S83.92XA Sprain of unspecified site of left knee, initial encounter (principal); F17.200 Nicotine dependence, unspecified, uncomplicated; F12.90 Cannabis use, unspecified, uncomplicated; X50.1XXA Overexertion from prolonged static or awkward postures, initial encounter; Y93.71 Activity, boxing
CPT/HCPCS: 99283

== ENCOUNTER 2021-12-09 13:08 | Emergency (ER) | payer OTHER ==
[2021-12-09 15:04] VITALS: BP 132/57; PULSE 80; RESP 16; TEMP 98.5
== END 2021-12-09 20:28 | disposition left against medical advice (07) ==
LOC: EC 13:08
DX: Z53.21 Procedure and treatment not carried out due to patient leaving prior to being seen by health care provider (principal)
CPT/HCPCS: 87635; 99499

== ENCOUNTER 2021-12-19 03:03 | Emergency (ER) | payer OTHER ==
[2021-12-19 03:09] VITALS: BP 115/72; PULSE 63; RESP 18; TEMP 97.8
--- NOTE | 2021-12-19 03:55 | XR ---
EXAMINATION TYPE: XR knee complete LT DATE OF EXAM: 12/19/2021 COMPARISON: 07/11/2021 HISTORY: Knee pain TECHNIQUE: 3 views FINDINGS: I see no fracture nor dislocation. Joint spaces are normal. There is a very small knee join t effusion. IMPRESSION: Small knee joint effusion is smaller than last exam. No fracture.
[2021-12-19] MEDS ORDERED: IBUPROFEN 600 MG TAB PO STA (06:08)
--- NOTE | 2021-12-19 06:54 | ED ---
Lower Extremity Injury HPI - General Chief Complaint: Extremity Injury, Lower Stated Complaint: Left Leg Injury Time Seen by Provider: 12/19/21 06:00 Source: patient, RN notes reviewed Mode of arrival: ambulatory Limitations: no limitations - History of Present Illness Initial Comments: This is a 21-year-old male who presents to the emergency department for left knee pain. Patient states that he was on a ladder yesterday morning, and felt his knee pop. He has had pain since, it is causing difficulty with ambulation. He does continue to feel popping with ambulation. He has not taken anything for the pain, nor has he had symptoms like this before. Denies any fevers, chills, sore throat, cough, dyspnea, chest pain, palpitations, abdominal pain, nausea, vomiting, diarrhea, back pain, or headaches. MD Complaint: knee injury Onset/Timin -: days(s) Associated Symptoms: snap/pop sensation - Related Data Previous Rx's Medication Instructions Recorded Amoxic-Pot Clav 875-125Mg 1 tab PO BID 10 Days #20 tab 03/23/20 [Augmentin 875-125] Ibuprofen 800 mg PO TID #20 tablet 07/11/21 Allergies Allergy/AdvReac Type Severity Reaction Status Date / Time peanut Allergy Itching Verified 12/19/21 03:10 Review of Systems ROS Statement: Those systems with pertinent positive or pertinent negative responses have been documented in the HPI. ROS Other: All systems not noted in ROS Statement are negative. Past Medical History Past Medical History: No Reported History History of Any Multi-Drug Resistant Organisms: None Reported Past Surgical History: No Surgical Hx Reported Past Psychological History: No Psychological Hx Reported Smoking Status: Current every day smoker Past Alcohol Use History: Occasional Past Drug Use History: Marijuana General Exam Limitations: no limitations General appearance: alert, in distress Head exam: Present: atraumatic, normocephalic, normal inspection Respiratory exam: Present: normal lung sounds bilaterally. Absent: respiratory distress, wheezes, rales, rhonchi, stridor Cardiovascular Exam: Present: regular rate, normal rhythm, normal heart sounds. Absent: systolic murmur, diastolic murmur, rubs, gallop, clicks Left Knee exam: Present: pain w/ pronation/supination, pain/laxity with valgus, pain/laxity with varus. Absent: full ROM, swelling, posterior draw sign Neurological exam: Present: alert, oriented X3, CN II-XII intact Psychiatric exam: Present: normal affect, normal mood Skin exam: Present: warm, dry, intact, normal color. Absent: rash Course Vital Signs 12/19/21 03:07 Temperature 97.8 F Pulse Rate 63 Respiratory 18 Rate Blood Pressure 115/72 O2 Sat by Pulse 99 Oximetry Medical Decision Making - Medical Decision Making This is a 21-year-old male who presents to the emergency department for left knee pain. Patient is in significant pain with most active and passive movement. Patient has a positive Estelita's test. Advised the patient that this may be a meniscal injury. He is also noted to have a small joint effusion, while this is noted to be smaller from his prior x-ray, that was 5 months ago, and it is possible that this is an entirely new joint effusion from this recent injury. Knee brace was provided. The emergency department only had bulky knee braces, he is advised to purchase a smaller [id number] option if he finds that to be more comfortable. Ice and elevation also advised, along with ambulation when comfortable. Information for orthopedics provided on discharge form, he is instructed to follow-up with them for further evaluation and management. Anti-inflammatories recommended for pain. He was given 600 mg of ibuprofen in the emergency department. Return precautions reviewed in depth, the patient is instructed to return to the emergency department with any new, worsening, or concerning symptoms. Patient verbalized understanding. This case was discussed in detail with the attending ED physician. Presentation, findings, and treatment plan discussed in detail as well. - Radiology Data Radiology results: report reviewed, image reviewed Disposition Clinical Impression: Injury of meniscus of left knee Disposition: HOME SELF-CARE Instructions (If sedation given, give patient instructions): Meniscus Tear (ED) Additional Instructions: Return to the emergency department with any new, worsening, or concerning symptoms. Use the knee brace provided or purchase an over the counter knee brace that may be less bulky. Apply ice, elevate the leg, and ambulate when comfortable. Contact orthopedics for an appointment. Is patient prescribed a controlled substance at d/c from ED?: No Referrals: None,Stated [Primary Care Provider] - 1-2 days Lula Lunsford DO [Doctor of Osteopathic Medicine] - 1-2 days
== END 2021-12-19 07:07 | disposition home or self-care (01) ==
LOC: EC 03:03
DX: S83.8X2A Sprain of other specified parts of left knee, initial encounter (principal); F17.200 Nicotine dependence, unspecified, uncomplicated; Z91.010 Allergy to peanuts; X50.9XXA Other and unspecified overexertion or strenuous movements or postures, initial encounter
CPT/HCPCS: 73562; 99283; L1830

== ENCOUNTER 2023-05-03 22:49 | Emergency (ER) | payer OTHER ==
[2023-05-03 23:10] VITALS: RESP 18; TEMP 97.9
[2023-05-03] MEDS ORDERED: CEPHALEXIN 500MG STARTER PACK 4 CAP BTL PO STA (23:46)
[2023-05-03 23:59] VITALS: BP 136/70; PULSE 84
--- NOTE | 2023-05-04 08:23 | ED ---
Skin/Abscess/FB HPI - General Chief complaint: Skin/Abscess/Foreign Body Stated complaint: Swelling of lip Time Seen by Provider: 05/03/23 23:32 Source: patient Mode of arrival: ambulatory Limitations: no limitations - History of Present Illness Initial comments: Patient is a healthy 22-year-old male presents the ER today for swelling of his lower lip. Patient reports a couple days ago he had what he thought was a pimple at the vermilion border, he tried squeezing it to get pus out is become more swollen and painful and his lip is very swollen. - Related Data Previous Rx's Medication Instructions Recorded Amoxic-Pot Clav 875-125Mg 1 tab PO BID 10 Days #20 tab 03/23/20 [Augmentin 875-125] Ibuprofen 800 mg PO TID #20 tablet 07/11/21 Cephalexin [Keflex] 500 mg PO Q6HR 1 Days #4 cap 05/03/23 Allergies Allergy/AdvReac Type Severity Reaction Status Date / Time peanut Allergy Itching Verified 05/03/23 22:58 Review of Systems ROS Statement: Those systems with pertinent positive or pertinent negative responses have been documented in the HPI. ROS Other: All systems not noted in ROS Statement are negative. Past Medical History Past Medical History: No Reported History History of Any Multi-Drug Resistant Organisms: None Reported Past Surgical History: No Surgical Hx Reported Past Psychological History: No Psychological Hx Reported Smoking Status: Former smoker Past Alcohol Use History: Occasional Past Drug Use History: None Reported, Marijuana General Exam - General Exam Comments Initial Comments: Physical Exam GENERAL: Patient is well-developed and well-nourished Patient is nontoxic and well-hydrated and is in no distress. HENT: Normocephalic, Atraumatic. Lower lip is swollen and seems to be a little bit of angioedema of the lip EYES: PERRL, EOMI PULMONARY: Unlabored respirations. CARDIOVASCULAR: RRR Warm and well perfused extremities ABDOMEN: Non-distended SKIN: No rashes or bruising : Deferred NEUROLOGIC: Alert and oriented Normal speech Normal gait MUSCULOSKELETAL: Moving all extremities with no apparent injury PSYCHIATRIC: No SI/HI Limitations: no limitations Course Vital Signs 05/03/23 05/03/23 22:59 23:49 Temperature 97.9 F Pulse Rate 89 84 Respiratory 18 18 Rate Blood Pressure 140/80 136/70 O2 Sat by Pulse 98 98 Oximetry Medical Decision Making - Medical Decision Making Was pt. sent in by a medical professional or institution (, [facility], ICE SKATING COACH, urgent care, hospital, or alf...) When possible be specific @ -No Did you speak to anyone other than the patient for history (EMS, parent, family, police, friend...)? What history was obtained from this source @ -No Did you review nursing and triage notes (agree or disagree)? Why? @ -I reviewed and agree with nursing and triage notes Were old charts reviewed (outside hosp., previous admission, EMS record, old EKG, old radiological studies, urgent care reports/EKG's, alf records)? Report findings @ -No old charts were reviewed Differential Diagnosis (chest pain, altered mental status, abdominal pain women, abdominal pain men, vaginal bleeding, weakness, fever, dyspnea, syncope, headache, dizziness, GI bleed, back pain, seizure, CVA, palpatations, mental health, musculoskeletal)? @ Angioedema, ALLERGIC reaction, infection EKG interpreted by me (3pts min.). @ -As above X-rays interpreted by me (1pt min.). @ -None done CT interpreted by me (1pt min.). @ -None done U/S interpreted by me (1pt. min.). @ -None done What testing was considered but not performed or refused? (CT, X-rays, U/S, labs)? Why? @ -None What meds were considered but not given or refused? Why? @ -None Did you discuss the management of the patient with other professionals (professionals i.e. , MART, ICE SKATING COACH, lab, RT, psych nurse, secondary social studies teacher, pairer inspector, teacher, chairman and chief executive officer, casework supervisor)? Give summary @ -No Was smoking cessation discussed for >3mins.? @ -No Was critical care preformed (if so, how long)? @ -No Were there social determinants of health that impacted care today? How? (Homelessness, low income, unemployed, alcoholism, drug addiction, transportation, low edu. Level, literacy, decrease access to med. care, half-way, rehab)? @ -No Was there de-escalation of care discussed even if they declined (Discuss DNR or withdrawal of care, Hospice)? DNR status @ -No What co-morbidities impacted this encounter? (DM, HTN, Smoking, COPD, CAD, Cancer, CVA, ARF, Chemo, Hep., AIDS, mental health diagnosis, sleep apnea, morbid obesity)? @ -None Was patient admitted / discharged? Hospital course, mention meds given and route, prescriptions, significant lab abnormalities, going to OR and other pertinent info. @ Discharge home with oral antibiotics and close return parameters Undiagnosed new problem with uncertain prognosis? @ -No Drug Therapy requiring intensive monitoring for toxicity (Heparin, Nitro, Insulin, Cardizem)? @ -No Were any procedures done? @ -No Diagnosis/symptom? @ Abscess of the lip Acute, or Chronic, or Acute on Chronic? @ -Acute Uncomplicated (without systemic symptoms) or Complicated (systemic symptoms)? @ -default Side effects of treatment? @ -No Exacerbation, Progression, or Severe Exacerbation? @ -No Poses a threat to life or bodily function? How? (Chest pain, [place], [place], pneumonia, PE, COPD, DKA, ARF, appy, cholecystitis, CVA, Diverticulitis, Homicidal, Suicidal, threat to staff... and all critical care pts) @ -No Disposition Clinical Impression: Lip abscess Disposition: HOME SELF-CARE Prescriptions: Cephalexin [Keflex] 500 mg PO Q6HR 1 Days #4 cap Is patient prescribed a controlled substance at d/c from ED?: No Referrals: None,Stated [Primary Care Provider] - 1-2 days
== END 2023-05-04 00:03 | disposition home or self-care (01) ==
LOC: EC 22:49
DX: K13.0 Diseases of lips (principal); F12.90 Cannabis use, unspecified, uncomplicated; Z91.010 Allergy to peanuts; Z87.891 Personal history of nicotine dependence
CPT/HCPCS: 99282

== ENCOUNTER 2023-08-25 14:54 | Emergency (ER) | payer OTHER ==
[2023-08-25 15:18] VITALS: RESP 18
--- NOTE | 2023-08-25 15:19 | ED ---
Nausea/Vomiting/Diarrhea HPI - General Chief complaint: Nausea/Vomiting/Diarrhea Stated complaint: vomiting Time Seen by Provider: 08/25/23 15:11 Source: patient, RN notes reviewed Mode of arrival: ambulatory Limitations: no limitations - History of Present Illness Initial comments: Patient is a 22-year-old male presenting to the ER with a chief complaint of sore throat and congestion. Patient states his symptoms started yesterday. Patient states earlier today he did have an episode of vomiting. Patient denies any chills but does state he feels mildly feverish. Patient has no significant past medical history. He denies any chest pain, shortness of breath, abdominal pain, constipation/diarrhea or urinary complaints. - Related Data Previous Rx's Medication Instructions Recorded Amoxic-Pot Clav 875-125Mg 1 tab PO BID 10 Days #20 tab 03/23/20 [Augmentin 875-125] Ibuprofen 800 mg PO TID #20 tablet 07/11/21 Cephalexin [Keflex] 500 mg PO Q6HR 1 Days #4 cap 05/03/23 Allergies Allergy/AdvReac Type Severity Reaction Status Date / Time peanut Allergy Itching Verified 08/25/23 15:07 Review of Systems ROS Statement: Those systems with pertinent positive or pertinent negative responses have been documented in the HPI. ROS Other: All systems not noted in ROS Statement are negative. Past Medical History Past Medical History: No Reported History History of Any Multi-Drug Resistant Organisms: None Reported Past Surgical History: No Surgical Hx Reported Past Psychological History: No Psychological Hx Reported Smoking Status: Former smoker Past Alcohol Use History: Occasional Past Drug Use History: None Reported General Exam Limitations: no limitations General appearance: alert, in no apparent distress Head exam: Present: atraumatic, normocephalic, normal inspection Eye exam: Present: normal appearance, PERRL, EOMI. Absent: scleral icterus, conjunctival injection, periorbital swelling ENT exam: Present: normal exam, normal oropharynx, mucous membranes moist, TM's normal bilaterally Neck exam: Present: normal inspection. Absent: tenderness, meningismus, lymphadenopathy Respiratory exam: Present: normal lung sounds bilaterally. Absent: respiratory distress, wheezes, rales, rhonchi, stridor Cardiovascular Exam: Present: regular rate, normal rhythm, normal heart sounds. Absent: systolic murmur, diastolic murmur, rubs, gallop, clicks Neurological exam: Present: alert, oriented X3, CN II-XII intact Psychiatric exam: Present: normal affect, normal mood Skin exam: Present: warm, dry, intact, normal color. Absent: rash Course Vital Signs 08/25/23 15:03 Temperature 98.8 F Pulse Rate 81 Respiratory 18 Rate Blood Pressure 143/66 O2 Sat by Pulse 96 Oximetry Medical Decision Making - Medical Decision Making Was pt. sent in by a medical professional or institution (MART Jones, PROCESS ENG, urgent care, hospital, or alf...) When possible be specific @ -No Did you speak to anyone other than the patient for history (EMS, parent, family, police, friend...)? What history was obtained from this source @ -No Did you review nursing and triage notes (agree or disagree)? Why? @ -I reviewed and agree with nursing and triage notes Were old charts reviewed (outside hosp., previous admission, EMS record, old EKG, old radiological studies, urgent care reports/EKG's, alf records)? Report findings @ -No old charts were reviewed Differential Diagnosis (chest pain, altered mental status, abdominal pain women, abdominal pain men, vaginal bleeding, weakness, fever, dyspnea, syncope, headache, dizziness, GI bleed, back pain, seizure, CVA, palpatations, mental he alth, musculoskeletal)? @ -Influenza, COVID, RSV, pneumonia, viral sinusitis this list is not meant to be all-inclusive. EKG interpreted by me (3pts min.). @ -None X-rays interpreted by me (1pt min.). @ -Chest x-ray interpreted by me shows no acute process. CT interpreted by me (1pt min.). @ -None done U/S interpreted by me (1pt. min.). @ -None done What testing was considered but not performed or refused? (CT, X-rays, U/S, labs)? Why? @ -None What meds were considered but not given or refused? Why? @ -None Did you discuss the management of the patient with other professionals (marie carr i.e. MART Jones, PROCESS ENG, lab, RT, psych nurse, social sciences department chair, organ pipe voicer, teacher, finance officer, telephonic case manager)? Give summary @ -No Was smoking cessation discussed for >3mins.? @ -No Was critical care preformed (if so, how long)? @ -No Were there social determinants of health that impacted care today? How? (Homelessness, low income, unemployed, alcoholism, drug addiction, transportation, low edu. Level, literacy, decrease access to med. care, penitentiary, rehab)? @ -No Was there de-escalation of care discussed even if they declined (Discuss DNR or withdrawal of care, Hospice)? DNR status @ -No What co-morbidities impacted this encounter? (DM, HTN, Smoking, COPD, CAD, Cancer, CVA, ARF, Chemo, Hep., AIDS, mental health diagnosis, sleep apnea, morbid obesity)? @ -None Was patient admitted / discharged? Hospital course, mention meds given and route, prescriptions, significant lab abnormalities, going to OR and other pertinent info. @ -Discharge. Patient is a 22-year-old male presented to the ER with chief complaint of congestion and cough. Vitals stable. History and physical exam were completed. Patient tested positive for RSV. COVID and flu negative. Chest x-ray without signs of acute process. Patient in no signs of acute distress. I advised [id number] Tylenol and Motrin for pain control. Return parameters were discussed. Patient be discharged stable condition with follow-up to PCP. Patient expressed understanding and agreement with care plan. Undiagnosed new problem with uncertain prognosis? @ -No Drug Therapy requiring intensive monitoring for toxicity (Heparin, Nitro, Insulin, Cardizem)? @ -No Were any procedures done? @ -No Diagnosis/symptom? @ -RSV Acute, or Chronic, or Acute on Chronic? @ -Acute Uncomplicated (without systemic symptoms) or Complicated (systemic symptoms)? @ -Uncomplicated Side effects of treatment? @ -No Exacerbation, Progression, or Severe Exacerbation? @ -No Poses a threat to life or bodily function? How? (Chest pain, [place], [place], pneumonia, PE, COPD, DKA, ARF, appy, cholecystitis, CVA, Diverticulitis, Homicidal, Suicidal, threat to staff... and all critical care pts) @ -No - Lab Data Lab Results 08/25/23 Range/Units 15:20 Influenza Type A (PCR) Not Detected (Not Detectd) Influenza Type B (PCR) Not Detected (Not Detectd) RSV (PCR) Detected A (Not Detectd) SARS-CoV-2 (PCR) Not Detected (Not Detectd) - Radiology Data Radiology results: report reviewed, image reviewed Disposition Clinical Impression: RSV (respiratory syncytial virus infection) Disposition: HOME SELF-CARE Condition: Stable Instructions (If sedation given, give patient instructions): Respiratory Syncytial Virus (ED) Additional Instructions: Please follow-up with PCP next 1 to 2 days. Return to ER for any new or worsening symptoms. Is patient prescribed a controlled substance at d/c from ED?: No Referrals: None,Stated [Primary Care Provider] - 1-2 days Time of Disposition: 17:18
--- NOTE | 2023-08-25 15:34 | XR ---
EXAMINATION TYPE: XR chest 2V DATE OF EXAM: 08/25/2023 3:31 PM CLINICAL INDICATION:Male, 22 years old with history of cough; [facility] COMPARISON: None TECHNIQUE: XR chest 2V Frontal and lateral views of the chest. FINDINGS: Lungs/Pleura: There is no evidence of pleural effusion, focal consolidation, or pneumothorax. Pulmonary vascularity: Unremarkable. Heart/mediastinum: Cardiomediastinal silhouette is unremarkable. Musculoskeletal: No acute osseous pathology. IMPRESSION: No acute cardiopulmonary disease/process.
[2023-08-25 17:42] VITALS: BP 134/85; PULSE 80; TEMP 98
== END 2023-08-25 17:33 | disposition home or self-care (01) ==
LOC: EC 14:54
DX: R11.2 Nausea with vomiting, unspecified (principal); B97.4 Respiratory syncytial virus as the cause of diseases classified elsewhere; Z87.891 Personal history of nicotine dependence; Z91.018 Allergy to other foods; Z20.822 Contact with and (suspected) exposure to COVID-19
CPT/HCPCS: 71046; 87636; 99284